=== PATIENT | female | born 1975 | race Caucasian/White ===

== ENCOUNTER 2016-08-11 13:00 | Outpatient (RCR) | payer BC | END 2016-09-27 13:24 | disposition home or self-care (01) | LOC: PT 13:00 | DX: M76.72 Peroneal tendinitis, left leg (principal); M77.52 Other enthesopathy of left foot and ankle ==

== ENCOUNTER → 2018-12-17 | Outpatient (CLI) | payer BC | LOC: RAD 11:17 | DX: D17.79 Benign lipomatous neoplasm of other sites (principal); R22.2 Localized swelling, mass and lump, trunk ==